=== PATIENT | female | born 1995 | race Caucasian/White ===

== ENCOUNTER 2024-04-28 05:34 | Inpatient (IN) ==
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
[2024-04-28 06:21] LABS: Hematocrit (blood only) 37.4 % (37.0-47.0); Hemoglobin 12.6 g/dl (12.0-16.0); Mean Corpuscular Hemoglobin 30.2 pg (25.0-34.0); Mean Corpuscular Hgb Conc 33.7 g/dL (32.0-36.0); Mean Corpuscular Volume 89.7 fL (80.0-100.0); Mean Platelet Volume 10.7 fL (9.4-12.4); Platelet Count 235 K/uL (130-400); RDW Coefficient of Variation 14.1 % (11.5-14.5); RDW Standard Deviation 45.8 fL (36.4-46.3); Red Blood Count 4.17 M/uL (4.20-5.40); White Blood Count 9.89 K/ul (4.8-10.8)
[2024-04-28] MEDS: ACETAMINOPHEN 500 MG TAB PO SCH (06:29)
[2024-04-28] MEDS ORDERED: OXYTOCIN 10 UNITS/ML VIAL ONE (06:51)
[2024-04-28] MEDS ORDERED: PHENYLEPHRINE 100MCG/ML 5ML SYR ONE (06:51)
[2024-04-28] MEDS ORDERED: DEXAMETHASONE SOD INJ 4 MG/ML VIAL ONE (06:51)
[2024-04-28] MEDS ORDERED: ONDANSETRON INJ 2 MG/ML 2 ML VIAL ONE (06:51)
[2024-04-28] MEDS ORDERED: PHENYLEPHRINE HCL 25 MG/250 ML NSS IV ONE (06:52)
[2024-04-28] MEDS ORDERED: fentaNYL citrate PF 100 MCG/2 ML VIAL ONE (06:52)
[2024-04-28] MEDS ORDERED: MoRPHine SULFATE PF 1 MG/ML 10 ML AMP/VIAL ONE (06:52)
[2024-04-28] MEDS: SODIUM CHLORIDE 0.9% 1,000 ML IV SCH ×2 (07:06→11:48)
[2024-04-28 07:19] LABS: Amphetamines+Metham, Urine Neg (Neg); Barbiturates, Urine Neg (Neg); Benzodiazepine, Urine Neg (Neg); Cocaine, Urine Neg (Neg); Fentanyl, Urine Neg (Neg); MDMA (Ecstacy), Urine Neg (Neg); Marijuana, Urine Neg (Neg); Methadone, Urine Neg (Neg); Opiate, Urine Neg (Neg); Phencyclidine, Urine Neg (Neg)
--- NOTE | 2024-04-28 07:25 | History & Physical Bridge Note ---
Date of Service April 28, 2024 History & Physical Bridge Note I have examined the patient, reviewed the History & Physical and in the interval since the performance of the History & Physical I have noted the following changes of clinical significance: no changes noted
[2024-04-28] MEDS: CITRIC ACID/SODIUM CITRATE 15 ML UDC PO SCH (08:01)
[2024-04-28] MEDS: ceFAZolin 2000MG 2,000 MG/15 ML SYR IV SCH (08:01)
[2024-04-28] MEDS ORDERED: oxyCODONE HCL IR 5 MG TAB (IMMEDIATE RELEASE) PO PRN (08:48)
[2024-04-28] MEDS ORDERED: NALOXONE HCL 0.4 MG/1 ML VIAL/CARP IV PRN ×2 (08:48→09:56)
[2024-04-28] MEDS ORDERED: NALOXONE HCL 1 MG in SODIUM CHLORIDE 0.9% 1,000 ML IV PRN (08:48)
[2024-04-28] MEDS ORDERED: PROMETHAZINE 6.25 MG/50.25 ML BAG IV PRN (08:48)
[2024-04-28] MEDS ORDERED: ONDANSETRON INJ 2 MG/ML 2 ML VIAL IV PRN ×2 (08:48→09:49)
[2024-04-28] MEDS ORDERED: NALOXONE HCL 0.08 MG in SYRINGE 1.8 ML IV PRN (08:48)
[2024-04-28] MEDS ORDERED: ePHEDrine sulfate 50 MG/ML AMP IV PRN (08:48)
[2024-04-28] MEDS ORDERED: diphenhydrAMINE 50 MG/ML VIAL IV PRN (08:48)
[2024-04-28] MEDS ORDERED: ePHEDrine sulfate 50 MG/5 ML SYR ONE (08:53)
[2024-04-28] MEDS ORDERED: DC INTRASPINAL MORPHINE SCH (09:00)
[2024-04-28] MEDS ORDERED: NO NARCOTICS OR SEDATIVES SCH (09:00)
[2024-04-28] MEDS: KETOROLAC 30 MG/ML VIAL ONE (09:31)
[2024-04-28] MEDS: HYDROmorphone INJ 0.5 MG/0.5 ML SYR IV PRN ×2 (09:37→09:55)
--- NOTE | 2024-04-28 09:40 | Anesthesiology Progress Note ---
Date of Service April 28, 2024 Anesthesia Post Procedure Vital Signs Vital Signs: Temp Pulse Resp BP Pulse Ox 04/28/24 09:34 84 100 04/28/24 09:29 87 130/99 99 04/28/24 08:03 93 H 125/86 04/28/24 05:48 76 121/76 04/28/24 05:45 36.8 C 76 18 121/76 Transfer of Care Handoff Completed per policy Notes Mental Status: alert / awake / arousable and participated in evaluation Patient Amnestic to Procedure: Yes Nausea / Vomiting: adequately controlled Pain: adequately controlled Airway Patency, RR, SpO2: stable & adequate BP & HR: stable & adequate Hydration State: stable & adequate Neuraxial Anesthesia: was administered and sensory block is resolving Anesthetic Complications: no major complications apparent and Pt Satisfied with anesthetic care
--- NOTE | 2024-04-28 09:45 | Operative Report ---
Post Operative Report Pre & Post Diagnosis Operation Date: 04/28/24 07:30 Pre-Op Diagnosis: Intrauterine at 39 weeks Desires repeat section Desires permanent sterilization Post-Op Diagnosis: same I identified the patient and participated in the time-out.: Yes Procedure Operation Date: 04/28/24 07:30 Actual Procedures p Repeat Low Transverse Section with Bilateral Salpingectomy in LD for live male infant at 0836 - Ophelia Hua MD Surgeon Ophelia Hua MD Corporate Lawyer MD Allison Quantitative Blood Loss (QBL) 681 Findings Consistent with Post-Op Diagnosis Normal appearing uterus, bilateral fallopian tubes and ovaries. Viable male infant with APGARs of 8 and 9 Specimens Placenta, right fallopian tube, left fallopian tube Drains Paris draining clear urine Anesthesia Type General Complications none Disposition Accompanied Patient To Recovery: Yes Disposition: L&D Indications 29 yo at 39 5/7 wga presents for planned repeat CS and desires permanent sterilization Description of Procedure The patient was taken to the operating room after consents were ensured. The patient was properly identified. Spinal anesthesia was obtained without difficulty. The patient was placed in a dorsal supine position with left lateral tilt, then prepped and draped in normal sterile fashion. Surgical time out was performed. Antibiotics were given for prophylaxis. Anesthesia was tested to ensure adequate surgical levels however patient was still uncomfortable so decision was made by anesthesia to undergo general anesthesia. Once general anesthesia was obtained, Pfannenstiel skin incision was performed and carried down to the underlying fascia with a knife. The fascia was then nicked in the midline and extended laterally with pickups and Garcia scissors. Superior portion of the fascia was grasped with Kochers x2 and elevated off the underlying rectus muscles using blunt dissection. Inferior portion of the fascia was then grasped with Eliza clamps x2 and also elevated off the underlying muscles with blunt dissection. Midline was identified. The peritoneum was then entered and extended to provide adequate room for delivery of baby. A hand was inserted into the abdomen, uterus was noted to be clear of adhesions. Bladder blade was inserted, bladder flap was created in the usual fashion. A low transverse uterine incision was made in the uterus and extended bluntly in a superior to inferior fashion. Amniotomy was made with clear fluid at the time of rupture. head was grasped and elevated through the hysterotomy in an atraumatic fashion. The baby delivered in JACOB position, nuchal cord was reduced. Remainder of the body delivered without incident. Nose and mouth were bulb suctioned on the surgical field. The cord was double clamped and cut, baby was handed off to awaiting pediatrics staff. Cord segment and blood were obtained. Placenta was then expressed from the uterus. The uterus was exteriorized. Several passes were made inside the uterus to remove the remaining membranes. Attention was then turned to the hysterotomy, which was then closed with a running locked suture of 0 Vicryl on a CTX needle. An imbricating layer was then performed using 0-Monocryl. There was noted to be good hemostasis. Attention was turned to the permanent sterilization portion of the procedure. Right fallopian tube was followed out to fimbriated end and excised with ligasure device to level of the cornua and handed off for pathology. There was excellent hemostasis. The same procedure was performed on the contralateral side. The posterior cul-de-sac was then inspected and cleaned of clot and debris. The hysterotomy was again inspected and noted to be hemostatic. Salpingectomy sites were hemostatic. The uterus was returned to the abdomen. The right and left pericolic gutters were cleaned of all clot and debris. The hysterotomy was again noted to be hemostatic. Salpingectomy sites are hemostatic. Space of Retzius was noted to be hemostatic. The fascia was then closed with a running suture of 0 Vicryl on a CT1 needle. Subcutaneous tissue was copiously irrigated and noted to be hemostatic. Subcutaneous tissue was re-approximated using 2-0 plain gut. The skin was then closed with a running suture of 3-0 Monocryl in a subcuticular fashion. At termination of the procedure, fundal pressure was applied and a moderate amount of lochia was expressed. Pressure dressing was applied to the patient. She tolerated the procedure well. All sponge, needle, instrument counts were correct x 2. I attest to the content of the Intraoperative Record and any orders documented therein. Any exceptions are noted below. OB Procedure Charges [id number] Add on Tubal for C/S
[2024-04-28] MEDS ORDERED: SENNA 8.6 MG TAB PO PRN (09:49)
[2024-04-28] MEDS ORDERED: BENZOCAINE 20% SPRY 85 APPLN/85 GM CAN EXT PRN (09:49)
[2024-04-28] MEDS ORDERED: MAGNESIUM HYDROXIDE SUSP 30 ML UDC PO PRN (09:49)
[2024-04-28] MEDS ORDERED: HYDROCORTISONE ACETATE 25 MG SUPP PR PRN (09:49)
[2024-04-28] MEDS ORDERED: PROMETHAZINE 12.5 MG/50.5 ML BAG IV PRN (09:49)
[2024-04-28] MEDS ORDERED: CALCIUM CARBONATE 500 MG CHEWABLE TAB PO PRN (09:49)
[2024-04-28] MEDS: KETOROLAC 30 MG/ML VIAL IV SCH (09:52)
[2024-04-28] MEDS: OXYTOCIN 20 UNITS/LR 1,002 ML IV SCH (09:52)
[2024-04-28] MEDS: HYDROmorphone PCA 30 MG/30 ML IV PRN (10:13)
[2024-04-28] MEDS: HYDROmorphone PCA 30 MG/30 ML IV ONE (10:18)
[2024-04-28] MEDS: SIMETHICONE 80 MG CHEW PO SCH (13:33)
[2024-04-28] MEDS: ACETAMINOPHEN 325 MG TAB PO SCH (15:00)
[2024-04-28] MEDS: oxyCODONE HCL IR 5 MG TAB (IMMEDIATE RELEASE) PO PRN (15:00)
[2024-04-28] MEDS: HYDROmorphone Bolus from PCA IV STA (15:10)
[2024-04-28] MEDS: MoRPHine SULFATE PF 1 MG/ML 10 ML AMP/VIAL INT SPINAL ONE (17:42)
[2024-04-28] MEDS: NALBUPHINE HCL INJ 10 MG/ML AMP IV PRN (20:53)
[2024-04-28] MEDS: DOCUSATE SODIUM 100 MG CAP PO SCH (20:54)
[2024-04-29] MEDS ORDERED: diphenhydrAMINE 50 MG/ML VIAL IV PRN (02:48)
[2024-04-29] MEDS ORDERED: oxyCODONE HCL IR 5 MG TAB (IMMEDIATE RELEASE) PO PRN (02:48)
[2024-04-29] MEDS ORDERED: diphenhydrAMINE Capsule 25 MG CAP PO PRN (02:48)
[2024-04-29] MEDS: DIPHTHER/TETAN/PERTUS Vaccine (Tdap, Adol/Adult) 0.5mL IM ONE (03:29)
--- NOTE | 2024-04-29 06:09 | Obstetrical Progress Note ---
Date of Service April 29, 2024 Assessment & Plan (1) state: (2) S/P section: Plan Rasheeda is a 29yo day 1 s/p repeat with b/l salpingectomy. Feeling well this AM, VSS. Continue care Encourage ambulation and Pain control as needed Hgb: 12.6 -> 9.3, asymptomatic Home tomorrow or next day (04/30 or 05/01/24) Followup with Dr. Hua in 6wks. Admission and Anticipated Discharge Date Admission Date: April 28, 2024 Supervising Physician Co-Signing Physician Notes Resident Physician Supervision Note: I interviewed and examined the patient. Discussed with Dr. Martinez and agree with findings and plan as documented in the note. Any exceptions or clarifications are listed here: [ ] Documented By: Joellen Latif MD, FACOG Subjective Rasheeda is a 29yo day 1 s/p repeat with b/l salpingectomy. Feeling well this AM, endorses some sleep overnight. Pain: mainly R half of incision scar Ambulation: yes Gas: yes Voiding: urinating but had to be straight-cathed this morning, no BM Lochia: decreasing Diet: tolerating well Feeds: breast, going well Denies headache, chest pain, SOB, n/v/d, LE pain/swelling, LE numbness/tingling. Review of Systems Review of Systems: Denies fever, body aches, chills, sweats, vision changes, significant vaginal bleeding/discharge. Physical Exam Physical Exam: General: A&Ox3, resting comfortably in bed, in no apparent distress, nontoxic in appearance Skin: warm, dry, intact HEENT: EOM intact, PERRL b/l Cardiovascular: RRR, +s1/s2, no murmurs/rubs/gallops Pulmonary: clear to auscultation b/l, no wheezes/rales/rhonchi GI/Abd: +BS, uterine fundus firm, RUQ>LUQ tenderness to palpation, level of umbilicus just R of midline; low transverse incision scar healing well, no erythema, discharge, swelling, or warmth; tenderness to palpation of R half of incision, otherwise healing well. Extremities: no significant swelling or erythema of b/l LE, nontender to palpation, negative Yamileth's b/l; warm, no clubbing or cyanosis Neuro: no facial droop, speech intact, moves all extremities on command Results & Data Vital Signs (Past 12 Hours) Vital Signs Temp Pulse Resp BP Pulse Ox O2 Del Method 04/29/24 03:00 36.7 C 79 18 114/76 97 Room Air 04/29/24 03:00 18 99 04/29/24 02:00 18 96 04/29/24 01:13 16 100 04/29/24 00:09 16 99 04/28/24 23:49 37.0 C 75 18 107/67 99 Room Air 04/28/24 23:15 16 99 04/28/24 22:15 20 99 04/28/24 21:15 20 99 04/28/24 20:15 20 96 04/28/24 20:15 36.8 C 80 20 102/61 96 Room Air 04/28/24 19:05 20 96 04/28/24 18:15 20 96 Laboratory Results 04/29/24 Range/Units 06:25 WBC 13.64 H (4.8-10.8) K/ul RBC 3.07 L (4.20-5.40) M/uL Hgb 9.3 L D (12.0-16.0) g/dl Hct 27.5 L (37.0-47.0) % MCV 89.6 (80.0-100.0) fL MCH 30.3 (25.0-34.0) pg MCHC 33.8 (32.0-36.0) g/dL RDW Std Deviation 45.8 (36.4-46.3) fL RDW Coeff of Kari 14.1 (11.5-14.5) % Plt Count 165 (130-400) K/uL MPV 10.4 (9.4-12.4) fL Immature Gran % (Auto) 0.7 % Neut % (Auto) 77.3 % Lymph % (Auto) 12.7 % Tift % (Auto) 8.1 % Eos % (Auto) 1.0 % Baso % (Auto) 0.2 % Neut # (Auto) 10.55 H (1.40-6.50) K/uL Lymph # (Auto) 1.73 (1.20-3.40) K/uL Tift # (Auto) 1.11 H (0.11-0.59) K/uL Eos # (Auto) 0.13 (0.00-0.50) K/uL Baso # (Auto) 0.03 (0.00-0.20) K/uL Immature Gran # (Auto) 0.09 (0.01-0.20) K/uL Resident Activity Tracking Resident Involvement: Resident Care Provided Care Provided: OB Delivery
[2024-04-29 06:56] LABS: Basophils # (auto) 0.03 K/uL (0.00-0.20); Basophils % (auto) 0.2 %; Eosinophils # (auto) 0.13 K/uL (0.00-0.50); Hematocrit (blood only) 27.5 % (37.0-47.0); Hemoglobin 9.3 g/dl (12.0-16.0); Immature Granulocytes # (auto) 0.09 K/uL (0.01-0.20); Immature Granulocytes % (auto) 0.7 %; Lymphocytes # (auto) 1.73 K/uL (1.20-3.40); Lymphocytes % (auto) 12.7 %; Mean Corpuscular Hemoglobin 30.3 pg (25.0-34.0); Mean Corpuscular Hgb Conc 33.8 g/dL (32.0-36.0); Mean Corpuscular Volume 89.6 fL (80.0-100.0); Mean Platelet Volume 10.4 fL (9.4-12.4); Monocytes # (auto) 1.11 K/uL (0.11-0.59); Monocytes % (auto) 8.1 %; Neutrophils # (auto) 10.55 K/uL (1.40-6.50); Neutrophils % (auto) 77.3 %; Platelet Count 165 K/uL (130-400); RDW Coefficient of Variation 14.1 % (11.5-14.5); RDW Standard Deviation 45.8 fL (36.4-46.3); Red Blood Count 3.07 M/uL (4.20-5.40); White Blood Count 13.64 K/ul (4.8-10.8)
[2024-04-29] MEDS: FERROUS SULFATE 325 MG TAB PO SCH (08:57)
[2024-04-29] MEDS: PRENATAL VITAMIN 1 TAB PO SCH (08:57)
[2024-04-29] MEDS ORDERED: KETOROLAC 30 MG/ML VIAL IV PRN (09:30)
[2024-04-29] MEDS: IBUPROFEN 600 MG TAB PO SCH (10:09)
[2024-04-29] MEDS: bisacodyL 5 MG TABEC PO SCH (21:19)
--- NOTE | 2024-04-30 07:34 | Obstetrical Progress Note ---
Date of Service April 30, 2024 Assessment & Plan (1) state: 29 yo POD 2 from rCS/BTL, doing well -Meeting all pp milestones -O+/rubella immune/ -f/u 6 weeks for appt, continue routine care Subjective Ambulation: ambulating normally Voiding: no voiding problems (after straight cath yesterday am) Passing Gas:: Yes Diet Tolerance:: regular diet Lochia:: Small Feeding Type:: breast feeding Pain well managed with medication Review of Systems Denies fevers, chills, n/v, MAE, CP, SOB Physical Exam Constitutional WD/WN, vitals as above no acute distress Respiratory normal respiratory effort, lungs clear to auscultation Cardiovascular RRR, no murmur, no edema Gastrointestinal (Abdomen) Percussion/Palpation: abdomen soft; abdomen nontender fundus firm at umbilicus and NT, incision c/d/i Musculoskeletal BLE symmetric, nonerythematous, nontender Results & Data Vital Signs (Past 12 Hours) Vital Signs Pulse Resp BP Pulse Ox O2 Del Method 04/29/24 23:50 70 16 122/74 98 Room Air
[2024-04-30 07:56] LABS: Hematocrit (blood only) 29.2 % (37.0-47.0); Hemoglobin 9.7 g/dl (12.0-16.0)
[2024-04-30] MEDS: IBUPROFEN 600 MG TAB PO PRN (09:19)
[2024-04-30] MEDS: ACETAMINOPHEN 325 MG TAB PO PRN (09:20)
[2024-04-30] MEDS ORDERED: bisacodyL 10 MG SUPP PR PRN (09:30)
--- NOTE | 2024-05-01 08:20 | Obstetrical Progress Note ---
Date of Service May 01, 2024 Assessment & Plan (1) state: (2) S/P section: Plan Rasheeda is a 29yo day 3 s/p repeat with b/l salpingectomy. Feeling well this AM, VSS. Encourage ambulation and Hgb: 12.6 -> 9.3>9.7 asymptomatic Ready to go home today. Followup with Dr. Hua in 6wks. Admission and Anticipated Discharge Date Admission Date: April 28, 2024 Supervising Physician Co-Signing Physician Notes Resident Physician Supervision Note: I interviewed and examined the patient. Discussed with Dr. Davis and agree with findings and plan as documented in the note. Any exceptions or clarifications are listed here: POD3 s/p rLTCS/BTL, doing well. Stable for dc home Documented By: Ophelia Hua MD Subjective Rasheeda is a 29yo day 3 s/p repeat with b/l salpin gectomy. Feeling well this AM, endorses some sleep overnight. Pain: Getting better Ambulation: yes Gas: yes Voiding: urinating Lochia: decreasing Diet: tolerating well Feeds: breast, going well Denies headache, chest pain, SOB, n/v/d, LE pain/swelling, LE numbness/tingling. Review of Systems Review of Systems: Denies fever, body aches, chills, sweats, vision changes, significant vaginal bleeding/discharge. Physical Exam Physical Exam: General: A&Ox3, resting comfortably in bed, in no apparent distress, nontoxic in appearance Skin: warm, dry, intact HEENT: EOM intact, PERRL b/l Cardiovascular: RRR, +s1/s2, no murmurs/rubs/gallops Pulmonary: clear to auscultation b/l, no wheezes/rales/rhonchi GI/Abd: +BS, uterine fundus firm, nontender to palpation, 1 fingerwidth inferior to level of umbilicus Extremities: no significant swelling or erythema of b/l LE, nontender to palpation, negative Yamileth's b/l; warm, no clubbing or cyanosis Neuro: no facial droop, speech intact, moves all extremities on command Results & Data Vital Signs (Past 12 Hours) Vital Signs Pulse Resp BP Pulse Ox O2 Del Method 05/01/24 00:30 75 16 113/74 98 Room Air
[2024-05-01 16:31] VITALS: BP 114/77; PULSE 77; RESP 16; TEMP 97.7; O2SAT 99
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
== END 2024-05-01 18:30 | disposition home or self-care (01) | DRG 785 ==
LOC: 4S1 05:34 → EDSTATUS 08:50 → 4E2 15:54
DX: Z37.0 Single live birth; O69.81X0 Labor and delivery complicated by cord around neck, without compression, not applicable or unspecified; O34.211 Maternal care for low transverse scar from previous cesarean delivery; Z3A.39 39 weeks gestation of pregnancy